=== PATIENT | male | born 1955 | race Two or more races ===

== ENCOUNTER 2020-09-02 12:00 | Day surgery (SDC) | payer OTHER, SELFPAY ==
[~2020-09-02] VITALS: Ht 162.6 cm; Wt 76.4 kg
--- NOTE | 2020-09-02 12:11 | NUR ---
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
[2020-09-02 13:11] LABS: ALANINE AMINOTRANSFERASE 27 U/L (12-78); ALBUMIN 3.9 g/dL (3.4-5.0); ANION GAP 6 mmol/L (5-15); BASOPHILS % (AUTO) 0 % (0-1); CALCIUM 8.8 mg/dL (8.5-10.1); CHLORIDE 101 mmol/L (98-107); CREATININE 0.74 mg/dL (0.7-1.3); EOSINOPHILS % (AUTO) 0 % (1-7); LYMPHOCYTES % (AUTO) 11 % (22-44); MEAN CORPUSCULAR HEMOGLOBIN 31.3 pg (27.5-34.5); MEAN CORPUSCULAR HGB CONC 34.4 g/dL (33.2-36.2); MONOCYTES % (AUTO) 11 % (2-9); NEUTROPHILS % (AUTO) 78 % (42-75); PLATELET COUNT 164 x10^3/uL (130-400); RED BLOOD COUNT 5.04 x10^6/uL (4.38-5.82); RED CELL DISTRIBUTION WIDTH 12.8 % (9.4-14.8)
[2020-09-02 13:12] LABS: MD NO
[2020-09-02 13:13] LABS: ALKALINE PHOSPHATASE 32 U/L (45-117); BILIRUBIN,TOTAL 0.7 mg/dL (0.2-1.0); TOTAL PROTEIN 7.5 g/dL (6.4-8.2)
--- NOTE | 2020-09-02 13:33 | NUR ---
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
--- NOTE | 2020-09-02 13:55 | NUR ---
PT AMBULATED TO RESTROOM WITH STEADY GAIT TO PROVIDE URINE SAMPLE. UA COLLECTED AND SENT TO LAB.
--- NOTE | 2020-09-02 13:59 | NUR ---
PT AT XRAY
[2020-09-02 14:07] LABS: MICROSCOPIC NOT IND
--- NOTE | 2020-09-02 14:07 | NUR ---
US AT BEDSIDE.
[2020-09-02] MEDS ORDERED: ONDANSETRON 2MG/ML, 2ML IVPush ONE (14:30)
[2020-09-02] MEDS ORDERED: SODIUM CHLORIDE FLUSH 10ML SYR IVF ONE (14:30)
[2020-09-02] MEDS ORDERED: MORPHINE SULFATE 4 MG/ML, 1ML ONE ×2 (14:42→15:21)
[2020-09-02] MEDS ORDERED: ONDANSETRON 2MG/ML, 2ML ONE ×3 (14:42→17:21)
[2020-09-02] MEDS: MORPHINE SULFATE 4 MG/ML, 1ML IVPush PRN ×2 (14:49→15:24)
--- NOTE | 2020-09-02 14:52 | NUR ---
PIV PLACED. MEDS ADMIN PER AUG.
--- NOTE | 2020-09-02 14:54 | NUR ---
PT TO BE ADMIT
[2020-09-02] MEDS ORDERED: CEFOTETAN PMX 1GM/50ML 50 ML IVPB ONE (15:00)
[2020-09-02] MEDS ORDERED: SODIUM CHLORIDE 0.9% 1,000 ML IV ONE ×2 (15:00→15:30)
[2020-09-02] MEDS ORDERED: DEXAMETHASONE 4 MG/ML, 1ML ONE (15:16)
--- NOTE | 2020-09-02 15:18 | NUR ---
IV ABX STARTED PER AUG.
--- NOTE | 2020-09-02 15:26 | NUR ---
SECOND DOSE PAIN MEDS ADMIN. RAPID COVID SWAB DONE AND TAKEN TO LAB.
[2020-09-02] MEDS ORDERED: MORPHINE SULFATE 4 MG/ML, 1ML IVPush PRN (15:30)
[2020-09-02] MEDS ORDERED: ONDANSETRON 2MG/ML, 2ML IVPush PRN (15:30)
[2020-09-02] MEDS ORDERED: SODIUM CHLORIDE FLUSH 10ML SYR IVF PRN (15:30)
[2020-09-02] MEDS ORDERED: BUPIVACAINE/PF 0.5% ONE (15:33)
[2020-09-02] MEDS ORDERED: EPINEPHRINE 1 MG/ML, 1ML ONE (15:33)
[2020-09-02] MEDS ORDERED: FENTANYL PF 100 MCG/2ML ONE ×3 (16:01→17:49)
[2020-09-02] MEDS ORDERED: MIDAZOLAM 1 MG/ML, 2ML ONE (16:01)
[2020-09-02] MEDS ORDERED: HYDROmorphone 1 MG/ML, 1ML INJ IVPush PRN (16:30)
[2020-09-02] MEDS ORDERED: MEPERIDINE/PF 25MG/0.5ML IVPush PRN (16:30)
[2020-09-02] MEDS ORDERED: ALBUTEROL SULFATE 2.5 MG/3 ML NPPB PRN (16:30)
[2020-09-02] MEDS ORDERED: ACETAMINOPHEN 325 MG TABLET PO PRN (16:30)
[2020-09-02] MEDS ORDERED: hydrALAzine 20 MG/ML, 1ML IV PRN (16:30)
[2020-09-02] MEDS ORDERED: PROMETHAZINE 25 MG/ML, 1ML IVPush PRN (16:30)
[2020-09-02] MEDS ORDERED: LORazepam 2 MG/ML, 1ML IVPush PRN (16:30)
[2020-09-02] MEDS ORDERED: OXYcodone 5 MG/5 ML ORAL.SOL UDC PO PRN (16:30)
[2020-09-02] MEDS ORDERED: LABETALOL 5MG/ML, 20ML IV PRN (16:30)
[2020-09-02] MEDS ORDERED: METHOCARBAMOL 1,000 MG in DEXTROSE 5% 100 ML IV PRN (16:30)
[2020-09-02] MEDS ORDERED: BUPIVACAINE/PF-EPI 0.5% 1:200K INFIL ONE (16:58)
[2020-09-02] MEDS ORDERED: NEOSTIGMINE 1 MG/ML, 10ML ONE (17:21)
[2020-09-02] MEDS ORDERED: CEFAZOLIN 1,000 MG ONE (17:21)
[2020-09-02] MEDS ORDERED: LIDOCAINE-MPF 2% ,5ML ONE (17:21)
[2020-09-02] MEDS ORDERED: ROCURONIUM 10MG/ML,5ML ONE (17:21)
[2020-09-02] MEDS ORDERED: PROPOFOL 10 MG/ML, 20ML ONE (17:21)
[2020-09-02] MEDS ORDERED: GLYCOPYRROLATE 0.2MG/1ML, 5ML ONE (17:21)
[2020-09-02] MEDS ORDERED: OXYC-302 PO (17:28)
[2020-09-02] MEDS ORDERED: OXYcodone 5 MG/5 ML ORAL.SOL UDC ONE (17:49)
[2020-09-02] MEDS: FENTANYL PF 100 MCG/2ML IV PRN ×3 (17:52→18:07)
[2020-09-02] MEDS ORDERED: ACETAMINOPHEN 650 MG/20.3 ML UDC ONE (17:58)
[2020-09-02 19:37] VITALS: BP 145/84
== END 2020-09-02 21:15 | disposition home or self-care (01) ==
LOC: ED 13:53 → UNDOADMIN 15:24 → EDIP 15:24 → OUT 15:24 → EDIP 18:48 → 4NE 18:48 → OUT 21:15 → UNDODISIN 21:15
PROVIDERS: ATTEND Emergency Medicine
DX: K80.10 Calculus of gallbladder with chronic cholecystitis without obstruction (principal); Z20.822 Contact with and (suspected) exposure to COVID-19; Z79.891 Long term (current) use of opiate analgesic; Z79.899 Other long term (current) drug therapy; Z85.038 Personal history of other malignant neoplasm of large intestine; Z90.49 Acquired absence of other specified parts of digestive tract
CPT/HCPCS: 36415; 47562; 74021; 76700; 80053; 81003; 83690; 85025; 87635; 88304; 93005; 96374; 99285; J0171; J0690; J1100; J2250; J2270; J2405; J2704; J2710; J3010; J7030; G0378

== ENCOUNTER 2020-12-05 14:16 | Emergency (ER) | payer SELFPAY ==
[~2020-12-05] VITALS: Ht 165.1 cm; Wt 76.3 kg
[~2020-12-05 14:16] MED LIST: OXYC-302 PO
--- NOTE | 2020-12-05 14:55 | NUR ---
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
--- NOTE | 2020-12-05 15:14 | NUR ---
pT BACK FROM LOBBY WITH CHIEF COMPLAINT OF LEFT ABD/FLANK PAIN STARTING LAST NIGHT
[2020-12-05] MEDS ORDERED: MORPHINE SULFATE 4 MG/ML, 1ML ONE ×2 (15:24→18:04)
[2020-12-05] MEDS ORDERED: ONDANSETRON 2MG/ML, 2ML ONE (15:24)
[2020-12-05] MEDS: MORPHINE SULFATE 4 MG/ML, 1ML IVPush PRN ×2 (15:28→18:06)
[2020-12-05] MEDS ORDERED: SODIUM CHLORIDE FLUSH 10ML SYR IVF ONE (15:30)
[2020-12-05] MEDS ORDERED: ONDANSETRON 2MG/ML, 2ML IVPush ONE (15:30)
[2020-12-05 15:34] LABS: BASOPHILS % (AUTO) 1 % (0-1); EOSINOPHILS % (AUTO) 1 % (1-7); LYMPHOCYTES % (AUTO) 19 % (22-44); MEAN CORPUSCULAR HEMOGLOBIN 31.1 pg (27.5-34.5); MEAN CORPUSCULAR HGB CONC 33.9 g/dL (33.2-36.2); MEAN PLATELET VOLUME 8.3 fL (7.4-10.4); MONOCYTES % (AUTO) 11 % (2-9); NEUTROPHILS % (AUTO) 69 % (42-75); PLATELET COUNT 166 x10^3/uL (130-400); RED BLOOD COUNT 4.72 x10^6/uL (4.38-5.82); RED CELL DISTRIBUTION WIDTH 13.8 % (9.4-14.8)
[2020-12-05 15:42] LABS: MICROSCOPIC NOT IND
[2020-12-05 15:43] LABS: ALANINE AMINOTRANSFERASE 21 U/L (12-78); ALBUMIN 3.7 g/dL (3.4-5.0); ANION GAP 9 mmol/L (5-15); CALCIUM 8.7 mg/dL (8.5-10.1); CHLORIDE 105 mmol/L (98-107); CREATININE 0.66 mg/dL (0.7-1.3)
[2020-12-05 15:45] LABS: ALKALINE PHOSPHATASE 32 U/L (45-117); BILIRUBIN,TOTAL 0.5 mg/dL (0.2-1.0); TOTAL PROTEIN 7.2 g/dL (6.4-8.2)
--- NOTE | 2020-12-05 16:31 | NUR ---
PT RESTING IN ROOM. NO ACUTE DISTRESS NOTED. FAMILY AT BEDSIDE. CALL LIGHT IN PLACE. WILL CONTINUE TO MONITOR.
--- NOTE | 2020-12-05 17:17 | NUR ---
PT AMBULATED TO BATHROOM. VS STABLE. CALL LIGHT IN PLACE. FAMILY AT BEDSIDE.
[2020-12-05] MEDS ORDERED: OMNIPAQUE 350 MG/ML, 100ML BOTTLE ONE (17:53)
[2020-12-05] MEDS ORDERED: MAALOX/HYOSCYAMINE/LIDOCAINE 45 ML BTL ONE (18:49)
[2020-12-05] MEDS ORDERED: MAALOX/HYOSCYAMINE/LIDOCAINE 45 ML BTL PO ONE (19:00)
[2020-12-05 19:27] VITALS: BP 142/71
--- NOTE | 2020-12-05 19:27 | NUR ---
THIS FLOAT RN AT BEDSIDE TO DC PT FOR PRIMARY RN, CARTER. PT AND FAMILY VERBALIZED UNDERSTANDING TO DC INSTRUCTIONS. AMBULATORY TO CHECKOUT C STEADY GAIT. VSS.
== END 2020-12-05 19:29 | disposition home or self-care (01) ==
LOC: ED 19:23
DX: K21.00 Gastro-esophageal reflux disease with esophagitis, without bleeding (principal); R10.13 Epigastric pain; R10.12 Left upper quadrant pain; K76.89 Other specified diseases of liver
CPT/HCPCS: 36415; 74177; 80053; 81003; 83690; 85025; 96374; 96375; 96376; 99285; J2270; J2405; Q9967

== ENCOUNTER 2020-12-06 15:39 | Inpatient (IN) | payer SELFPAY ==
[~2020-12-06] VITALS: Ht 165.1 cm; Wt 75.1 kg
--- NOTE | 2020-12-06 15:59 | NUR ---
CC OF LUQ AND LEFT FLANK PAIN. PT WAS SEEN YESTERDAY AND TOLD TO FOLLOW UP WITH GI DOC TO SEE IF HE WILL NEED SURGERY. PER FAMILY THEY HAVE AN APPOITMENT IN JANUARY BUT PAIN HAS WORSENED AND THEY ARE CONCERED ABOUT NEEDING SURGERY NOW TO REMOVE CYST FOUND ON CT YESTERDAY. PT IS KOREAN SPEAKING.
[2020-12-06] MEDS ORDERED: PANTOPRAZOLE 40 MG IV IVPush SCH (17:00)
[2020-12-06] MEDS ORDERED: MAALOX/HYOSCYAMINE/LIDOCAINE 45 ML BTL PO ONE (17:00)
[2020-12-06] MEDS ORDERED: ONDANSETRON 2MG/ML, 2ML IVPush ONE (17:00)
[2020-12-06] MEDS ORDERED: MORPHINE SULFATE 4 MG/ML, 1ML IVPush PRN (17:00)
[2020-12-06] MEDS ORDERED: ONDANSETRON 2MG/ML, 2ML ONE (17:35)
[2020-12-06] MEDS ORDERED: MAALOX/HYOSCYAMINE/LIDOCAINE 45 ML BTL ONE (17:35)
[2020-12-06] MEDS ORDERED: MORPHINE SULFATE 4 MG/ML, 1ML ONE ×2 (17:35→19:58)
[2020-12-06] MEDS ORDERED: PANTOPRAZOLE 40 MG IV ONE (17:35)
[2020-12-06 17:52] LABS: ALANINE AMINOTRANSFERASE 22 U/L (12-78); ANION GAP 9 mmol/L (5-15); CALCIUM 9.2 mg/dL (8.5-10.1); CHLORIDE 102 mmol/L (98-107); CREATININE 0.64 mg/dL (0.7-1.3)
[2020-12-06 17:53] LABS: BASOPHILS % (AUTO) 1 % (0-1); EOSINOPHILS % (AUTO) 1 % (1-7); LYMPHOCYTES % (AUTO) 23 % (22-44); MEAN CORPUSCULAR HEMOGLOBIN 31.3 pg (27.5-34.5); MEAN CORPUSCULAR HGB CONC 34.4 g/dL (33.2-36.2); MEAN PLATELET VOLUME 8.7 fL (7.4-10.4); MONOCYTES % (AUTO) 10 % (2-9); NEUTROPHILS % (AUTO) 65 % (42-75); PLATELET COUNT 172 x10^3/uL (130-400); RED BLOOD COUNT 4.99 x10^6/uL (4.38-5.82); RED CELL DISTRIBUTION WIDTH 13.8 % (9.4-14.8)
[2020-12-06 17:54] LABS: ALKALINE PHOSPHATASE 33 U/L (45-117); BILIRUBIN,TOTAL 0.6 mg/dL (0.2-1.0); TOTAL PROTEIN 7.7 g/dL (6.4-8.2)
--- NOTE | 2020-12-06 19:25 | NUR ---
PT REPORTS NO RELIEF IN PAIN.
[2020-12-06] MEDS ORDERED: AMOXICILLIN 500 MG CAPSULE PO ONE (20:00)
[2020-12-06] MEDS ORDERED: HYDROmorphone 1 MG/ML, 1ML INJ IV ONE (20:00)
[2020-12-06] MEDS ORDERED: CLARITHROMYCIN 500 MG TABLET PO ONE (20:00)
[2020-12-06] MEDS ORDERED: HYDROmorphone 1 MG/ML, 1ML INJ ONE (20:01)
[2020-12-06] MEDS ORDERED: AMOXICILLIN 500 MG CAPSULE ONE (20:02)
[2020-12-06] MEDS ORDERED: BISACODYL 10 MG SUPP PR PRN (21:00)
[2020-12-06] MEDS ORDERED: POLYETHYLENE GLYCOL 17 GM PACKET PO PRN (21:00)
[2020-12-06] MEDS ORDERED: ONDANSETRON 2MG/ML, 2ML IVPush PRN (21:00)
[2020-12-06] MEDS ORDERED: ACETAMINOPHEN 325 MG TABLET PO PRN (21:00)
--- NOTE | 2020-12-06 21:30 | NUR ---
REPORT GIVEN TO CRISTHIAN LOCKETT
[2020-12-06 21:44] VITALS: BP 127/78
[2020-12-06] MEDS: morphine SULFATE 10 MG/ML, 1ML IVPush PRN ×2 (22:25→22:47)
[2020-12-07 02:27] VITALS: BP 115/66
[2020-12-07] MEDS: morphine SULFATE 10 MG/ML, 1ML IVPush PRN ×4 (05:16→20:30)
[2020-12-07 06:22] VITALS: BP 112/65
[2020-12-07] MEDS: SENNA/DOCUSATE TABLET PO SCH (09:59)
[2020-12-07 14:23] VITALS: BP 134/79
[2020-12-07 14:51] LABS: MICROSCOPIC NOT IND
[2020-12-07] MEDS: HYDROcodone/APAP 5/325 TABLET PO PRN ×2 (15:41→22:21)
[2020-12-07] MEDS: OMEPRAZOLE 20 MG CAPSULE.DR PO SCH (16:49)
[2020-12-07] MEDS: MOVIPREP POWDER 1 PREP KIT PO SCH (17:55)
[2020-12-07 20:08] VITALS: BP 127/78
[2020-12-08 00:22] VITALS: BP 115/70
[2020-12-08] MEDS: MOVIPREP POWDER 1 PREP KIT PO SCH (05:12)
[2020-12-08] MEDS: morphine SULFATE 10 MG/ML, 1ML IVPush PRN ×5 (05:12→23:12)
[2020-12-08] MEDS: OMEPRAZOLE 20 MG CAPSULE.DR PO SCH ×2 (05:20→05:24)
[2020-12-08 05:36] LABS: BASOPHILS % (AUTO) 1 % (0-1); EOSINOPHILS % (AUTO) 3 % (1-7); LYMPHOCYTES % (AUTO) 24 % (22-44); MEAN CORPUSCULAR HEMOGLOBIN 31.4 pg (27.5-34.5); MEAN CORPUSCULAR HGB CONC 34.6 g/dL (33.2-36.2); MEAN PLATELET VOLUME 8.7 fL (7.4-10.4); MONOCYTES % (AUTO) 13 % (2-9); NEUTROPHILS % (AUTO) 60 % (42-75); PLATELET COUNT 169 x10^3/uL (130-400); RED BLOOD COUNT 4.88 x10^6/uL (4.38-5.82); RED CELL DISTRIBUTION WIDTH 13.6 % (9.4-14.8)
[2020-12-08 05:47] LABS: ALANINE AMINOTRANSFERASE 32 U/L (12-78); ALBUMIN 3.5 g/dL (3.4-5.0); ANION GAP 7 mmol/L (5-15); CALCIUM 8.9 mg/dL (8.5-10.1); CHLORIDE 105 mmol/L (98-107)
[2020-12-08 05:50] LABS: ALKALINE PHOSPHATASE 31 U/L (45-117); BILIRUBIN,TOTAL 0.7 mg/dL (0.2-1.0); TOTAL PROTEIN 7.2 g/dL (6.4-8.2)
[2020-12-08 06:52] VITALS: BP 130/72
[2020-12-08] MEDS ORDERED: PROPOFOL 50 ML ONE (07:26)
[2020-12-08] MEDS ORDERED: OXYcodone 5 MG/5 ML ORAL.SOL UDC PO PRN (08:00)
[2020-12-08] MEDS ORDERED: morphine SULFATE 10 MG/ML, 1ML IVPush PRN (08:00)
[2020-12-08] MEDS ORDERED: PROMETHAZINE 25 MG/ML, 1ML IVPush PRN (08:00)
[2020-12-08] MEDS ORDERED: DIPHENHYDRAMINE 50 MG/ML, 1ML IVPush PRN (08:00)
[2020-12-08] MEDS ORDERED: ONDANSETRON 2MG/ML, 2ML IVPush PRN (08:00)
[2020-12-08] MEDS ORDERED: MEPERIDINE/PF 25MG/0.5ML IVPush PRN (08:00)
[2020-12-08] MEDS ORDERED: EPHEDRINE 50 MG/ML, 1ML IM PRN (08:00)
[2020-12-08] MEDS ORDERED: DIAZEPAM 5 MG/ML, 2ML IVPush PRN (08:00)
[2020-12-08] MEDS ORDERED: FENTANYL PF 100 MCG/2ML IV PRN (08:00)
[2020-12-08] MEDS: SENNA/DOCUSATE TABLET PO SCH (09:03)
[2020-12-08] MEDS: HYDROcodone/APAP 5/325 TABLET PO PRN (13:26)
[2020-12-08 13:54] VITALS: BP 118/65
[2020-12-08 19:44] VITALS: BP 111/66
[2020-12-09 01:14] VITALS: BP 134/75
[2020-12-09] MEDS: PANTOPRAZOLE 40MG TABLET PO SCH (05:47)
[2020-12-09 06:53] VITALS: BP 106/65
[2020-12-09] MEDS: SENNA/DOCUSATE TABLET PO SCH (09:00)
[2020-12-09] MEDS: morphine SULFATE 10 MG/ML, 1ML IVPush PRN (09:31)
[2020-12-09 11:29] LABS: BASOPHILS % (AUTO) 1 % (0-1); EOSINOPHILS % (AUTO) 2 % (1-7); LYMPHOCYTES % (AUTO) 16 % (22-44); MEAN CORPUSCULAR HEMOGLOBIN 31.2 pg (27.5-34.5); MEAN CORPUSCULAR HGB CONC 33.8 g/dL (33.2-36.2); MEAN PLATELET VOLUME 8.7 fL (7.4-10.4); MONOCYTES % (AUTO) 14 % (2-9); NEUTROPHILS % (AUTO) 68 % (42-75); PLATELET COUNT 184 x10^3/uL (130-400); RED BLOOD COUNT 4.92 x10^6/uL (4.38-5.82); RED CELL DISTRIBUTION WIDTH 13.5 % (9.4-14.8)
[2020-12-09] MEDS ORDERED: GOLYTELY 4,000ML ORAL.SOL PO ONE (11:30)
[2020-12-09 14:09] VITALS: BP 125/74
[2020-12-09 19:33] VITALS: BP 135/70
[2020-12-09] MEDS ORDERED: D5%-0.9% NACL 1,000 ML IV SCH (20:00)
[2020-12-10 00:37] VITALS: BP 108/68
[2020-12-10] MEDS: PANTOPRAZOLE 40MG TABLET PO SCH (05:22)
[2020-12-10 05:48] LABS: ALBUMIN 3.3 g/dL (3.4-5.0); ANION GAP 6 mmol/L (5-15); CALCIUM 8.7 mg/dL (8.5-10.1); CHLORIDE 107 mmol/L (98-107)
[2020-12-10 05:53] LABS: ALANINE AMINOTRANSFERASE 110 U/L (12-78); ALKALINE PHOSPHATASE 40 U/L (45-117); BILIRUBIN,TOTAL 0.7 mg/dL (0.2-1.0); CREATININE 0.75 mg/dL (0.7-1.3); TOTAL PROTEIN 6.6 g/dL (6.4-8.2)
[2020-12-10] MEDS: SENNA/DOCUSATE TABLET PO SCH (07:11)
[2020-12-10 07:14] VITALS: BP 116/63
[2020-12-10] MEDS ORDERED: PROPOFOL 50 ML ONE (09:37)
[2020-12-10] MEDS ORDERED: HYDROmorphone 1 MG/ML, 1ML INJ IVPush PRN (10:00)
[2020-12-10] MEDS ORDERED: OXYcodone 5 MG/5 ML ORAL.SOL UDC PO PRN (10:00)
[2020-12-10] MEDS ORDERED: FENTANYL PF 100 MCG/2ML IV PRN (10:00)
[2020-12-10] MEDS ORDERED: ONDANSETRON 2MG/ML, 2ML IVPush PRN (10:00)
[2020-12-10] MEDS ORDERED: POLY17PO5 PO (11:36)
[2020-12-10] MEDS ORDERED: PANT40TA6 PO (11:36)
== END 2020-12-10 13:29 | disposition home or self-care (01) | DRG 384 ==
LOC: ED 15:51 → EDIP 20:43 → 3N 21:43
PROVIDERS: ADMIT Family Medicine; ATTEND Family Medicine
PROC: 0DB68ZX Excision of Stomach, Via Natural or Artificial Opening Endoscopic, Diagnostic (ICD-10-PCS; principal; 2020-12-08 07:30)
PROC: 0DBK8ZZ Excision of Ascending Colon, Via Natural or Artificial Opening Endoscopic (ICD-10-PCS; 2020-12-10)
PROC: 0DBL8ZZ Excision of Transverse Colon, Via Natural or Artificial Opening Endoscopic (ICD-10-PCS; 2020-12-10)
DX: K25.9 Gastric ulcer, unspecified as acute or chronic, without hemorrhage or perforation (principal); K21.00 Gastro-esophageal reflux disease with esophagitis, without bleeding; K59.00 Constipation, unspecified; K76.0 Fatty (change of) liver, not elsewhere classified; K76.89 Other specified diseases of liver; Z85.048 Personal history of other malignant neoplasm of rectum, rectosigmoid junction, and anus; Z87.11 Personal history of peptic ulcer disease; Z90.49 Acquired absence of other specified parts of digestive tract; Z20.822 Contact with and (suspected) exposure to COVID-19
CPT/HCPCS: 36415; 96374; 96375; 99285; J7042; 76705; 80053; 80074; 81003; 83690; 83735; 84100; 85025; 87635; 88305; G0378; J1170; J2405; J2704; C9113; J2270